=== PATIENT | male | born 1965 | race African-American/Black ===

== ENCOUNTER 2020-11-12 11:37 | Emergency (ER) | payer MEDICARE, MEDICAID, SELFPAY ==
--- NOTE | ~2020-11-12 | XR_ITS ---
EXAMINATION: XR shoulder RT min 2V INDICATION: Right shoulder pain TECHNIQUE: Four views of the right shoulder are submitted. COMPARISON: 08/15/2019 FINDINGS: Normal alignment. No fracture. 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 The glenohumeral joint is unremarkable. Chronic subpleural scarring is noted in the right upper lung zone. Surgical clips in the neck likely reflect thyroidectomy. IMPRESSION: 1. No acute osseous abnormality. Reviewed, dictated and finalized at location A. NG ROOM SUPERVISOR
[2020-11-12 11:42] VITALS: BP 138/94; PULSE 91; RESP 17; TEMP 36.2; O2SAT 99
--- NOTE | 2020-11-12 13:10 | ED.UPPEXIN ---
HPI - Extremity Injury (Upper) General Chief Complaint: Extremity Injury, Upper Stated Complaint: rt shoulder hurts Time Seen by Provider: 11/12/20 12:09 History of Present Illness HPI narrative: Patient is a 55-year-old male who presents ER with right shoulder pain. Reports it began about 2 months ago and has steadily increased in discomfort. He is also had decrease in range of motion. Denies any sudden injury. He has taken Tylenol without improvement. He is able to see his primary care physician tomorrow. No numbness or tingling going down the arm. Related Data Allergies Allergy/AdvReac Type Severity Reaction Status Date / Time ibuprofen AdvReac Unknown Nausea and Verified 11/12/20 11:38 Vomiting Review of Systems Cardiovascular: Cardiovascular: Denies chest pain, Denies rapid heart rate and Denies radiating jaw, neck or arm pain Musculoskeletal: Musculoskeletal: Denies back pain, Reports arthralgias, Denies joint swelling and Denies muscle cramps Neurologic: Denies focal weakness and Denies numbness PMFSH Past Medical History Medical History (Updated 11/12/20 @ 13:16 by Kwabena Forman MD) Hypertension Hypothyroidism Surgical History Surgical History H/O thyroidectomy Social History Social History Gender identity (if verbalized by the patient): Male Exam Narrative: Exam Narrative: GENERAL: Well-appearing, well-nourished, and in no acute distress. HEAD: Normocephalic, atraumatic. CHEST: Clear to auscultation. No respiratory distress. HEART: Regular rate and rhythm. Normal peripheral pulses. EXTREMITIES: Focused exam of the right upper extremity reveals decreased range of motion at the shoulder. Unable to get to 90 degrees with abduction at the shoulder, he cannot fully externally rotate the arm at the shoulder nor can he reach back to place his hand on his spine. Range of motion of the elbow and wrist are normal as is sensation and pulses. NEURO: Alert and oriented x3. Course Course Emergency Course: Concern for frozen shoulder. Discussed need for range of motion exercises and likely physical therapy through his PCP. Patient verbalized understanding. Vital Signs Vital signs: Vital Signs Temperature 97.2 F L 11/12/20 11:42 Pulse Rate 91 11/12/20 11:42 Respiratory Rate 17 11/12/20 11:42 Blood Pressure 138/94 H 11/12/20 11:42 Pulse Oximetry 99 11/12/20 11:42 Temperature 97.2 F L 11/12/20 11:42 Pulse Rate 91 11/12/20 11:42 Respiratory Rate 17 11/12/20 11:42 Blood Pressure 138/94 H 11/12/20 11:42 Pulse Oximetry 99 11/12/20 11:42 MDM - Extremity Injury (Upper) Imaging Data Radiologist's impression: ITS Impressions Shoulder X-Ray 11/12/20 12:59 IMPRESSION: 1. No acute osseous abnormality. Discharge Plan Discharge Clinical Impression: Adhesive capsulitis of shoulder Patient Disposition: Home, Self-Care Condition: Stable Instructions: Adhesive Capsulitis (ED), Exercises for Shoulder Flexion and Extension (ED), Exercises for Internal and External Shoulder Rotation (ED), Exercises for Shoulder Abduction and Adduction (ED) Additional Instructions: Contact your primary care doctor and obtain follow-up. You may require physical therapy and potentially an MRI to further assess what is going on with your shoulder. Your x-ray did not show any acute bony injury or evidence of significant arthritis. Return to the ER if you have chest pain or shortness of breath, you lose consciousness, you cannot keep down food or water, you have additional concerns. Take your naproxen with food to prevent ulcer formation. Prescriptions: New naproxen 500 mg tablet 500 mg PO BID Qty: 14 RF: 0 Follow-up/Referrals: Gilbert Viera MD [Physician] - 1 Week PHYSICIAN,HR CONSULTANT [Primary Care Provider] -
== END 2020-11-12 13:28 | disposition home or self-care (01) ==
PROVIDERS: Emergency Provider Emergency Medicine
DX: M75.01 Adhesive capsulitis of right shoulder (principal); I10 Essential (primary) hypertension; E89.0 Postprocedural hypothyroidism
CPT/HCPCS: 73030; 99283

== ENCOUNTER 2021-03-09 09:56 | Outpatient (CLI) | payer MEDICARE, MEDICAID, SELFPAY ==
[2021-03-09 18:11] LABS: Basophils Absolute Auto 0.1 K/mm3 (0.0-0.1); Basophils Percent Auto 1.3 % (0.2-1.2); Eosinophils Absolute Auto 0.3 K/mm3 (0-0.3); Eosinophils Percent Auto 6.7 % (0-4.4); Hematocrit 42.3 % (42.0-52.0); Lymphocytes Absolute Auto 1.56 K/mm3 (0.9-3.2); Lymphocytes Percent Auto 35.1 % (18.3-44.2); Mean Corpuscular HGB Conc 33.1 g/dl (32-36); Mean Corpuscular Hemoglobin 31.3 pg (26-34); Mean Corpuscular Volume 94.4 fl (80-100); Mean Platelet Volume 12.1 fl (7.4-10.4); Monocytes Absolute Auto 0.5 K/mm3 (0.1-0.6); Monocytes Percent Auto 12.1 % (2.6-8.5); Neutrophils Percent Auto 44.8 % (45.5-73.1); Platelet Count Result 166 k/mm3 (150-375); Red Blood Count 4.48 M/mm3 (4.6-6.20); Red Cell Distribution Width 13.9 % (11.5-14.5); White Blood Count 4.5 K/mm3 (4.5-10.0)
[2021-03-09 18:13] LABS: Add Urine Microscopic? NO; Appearance Urine Clear (Clear); Bilirubin Urine Negative (Negative); Blood Urine Negative (Negative); Color Urine Yellow (Yellow); Glucose Urine UA Negative (Negative); Ketones Urine Negative (Negative); Leukocyte Esterase Ur Negative LEU/UL (Negative); Nitrate Urine Negative (Negative); Protein Urine Negative (Negative); Specific Grav Ur 1.016 (1.001-1.035); Urobilinogen Urine Negative mg/dL (<2.0)
[2021-03-09 18:18] LABS: Uric Acid 6.3 mg/dL (3.5-8.5)
[2021-03-09 18:19] LABS: Alanine Aminotransferase 32 U/L (4-50); Albumin Level 4.3 g/dL (3.5-5.1); Alkaline Phosphatase 72 U/L (38-126); Anion Gap 10 mmol/L (8-16); Aspartate Amino Transferase 46 U/L (17-59); Bilirubin,Total 0.5 mg/dL (0.2-1.3); Blood Urea Nitrogen 17 mg/dL (9-20); Calcium 9.4 mg/dL (8.4-10.2); Carbon Dioxide 28 mmol/L (22-30); Chloride 107 mmol/L (98-107); Cholesterol 125 mg/dL (0-200); Estimated Glomerular Filt Rate 54; Glucose 127 mg/dL (75-110); HDL Direct 64 mg/dL; Potassium 4.3 mmol/L (3.4-5.0); Sodium 145 mmol/L (137-145); Triglycerides 83 mg/dL (<150)
[2021-03-09 18:22] LABS: Iron 68 ug/dL (49-181)
[2021-03-09 18:30] LABS: LDL Cholesterol Direct 35 mg/dL
[2021-03-09 18:33] LABS: Percent Iron Saturation 21 % (20-50)
[2021-03-09 18:43] LABS: Vitamin D 25 Hydroxy 23.9 ng/mL
[2021-03-09 18:50] LABS: Prostate Specific Antigen 0.7 ng/mL (< OR = 4.0)
[2021-03-09 19:24] LABS: Folic Acid 12.6 ng/mL (2.76->20)
[2021-03-09 19:44] LABS: Hemoglobin A1C 7.9 % (<5.7)
[2021-03-12 15:08] LABS: Testosterone Free 32.5 pg/mL (35.0-155.0); Testosterone Total 164 ng/dL (250-1100)
[2021-03-13 07:45] LABS: C-Peptide 1.74 ng/mL (0.80-3.85)
== END 2021-03-09 09:57 | disposition home or self-care (01) ==
PROVIDERS: PCP Family Medicine; Visit Provider Family Medicine
DX: G62.9 Polyneuropathy, unspecified (principal); E89.0 Postprocedural hypothyroidism; Z82.62 Family history of osteoporosis; Z82.49 Family history of ischemic heart disease and other diseases of the circulatory system; F17.200 Nicotine dependence, unspecified, uncomplicated; N18.9 Chronic kidney disease, unspecified; E11.9 Type 2 diabetes mellitus without complications; I12.9 Hypertensive chronic kidney disease with stage 1 through stage 4 chronic kidney disease, or unspecified chronic kidney disease; Z12.5 Encounter for screening for malignant neoplasm of prostate; Z79.899 Other long term (current) drug therapy; N99.89 Other postprocedural complications and disorders of genitourinary system; M19.90 Unspecified osteoarthritis, unspecified site
CPT/HCPCS: 36415; 80053; 80061; 81003; 82306; 82607; 82728; 82746; 83036; 83540; 83550; 84153; 84402; 84403; 84443; 84550; 84681; 85025; G0103

== ENCOUNTER 2021-03-23 12:53 | Outpatient (CLI) | payer MEDICARE, MEDICAID, SELFPAY ==
--- NOTE | ~2021-03-23 | XR_ITS ---
EXAMINATION: XR chest 2V DATE: 03/23/2021 13:05 INDICATION: Nicotine dependence, unspecified. TECHNIQUE: Frontal and lateral views of the chest were obtained. COMPARISON: Chest 2 views 08/15/2019 FINDINGS: There is mild scarring in the mid and upper lung zones. No pleural effusion or pneumothorax . The heart size is normal. IMPRESSION: 1. Mild scarring in the mid and upper lung zones with interval improvement. Reviewed, dictated and finalized at location A.
== END 2021-03-23 12:54 | disposition home or self-care (01) ==
LOC: ANHBWCIMG 12:55
PROVIDERS: PCP Family Medicine; Visit Provider Family Medicine
DX: F17.210 Nicotine dependence, cigarettes, uncomplicated (principal); J98.4 Other disorders of lung
CPT/HCPCS: 71046